=== PATIENT | female | born 1975 | race Caucasian/White ===

== ENCOUNTER 2020-12-07 19:30 | Emergency (ER) | payer MEDICAID, OTHER ==
[~2020-12-07] VITALS: Ht 165.1 cm; Wt 91.0 kg
[2020-12-07] MEDS ORDERED: KETOROLAC 30MG/ML VIAL IV STA (20:47)
[2020-12-07] MEDS ORDERED: ACETAMINOPHEN WITH CODEINE 300/30MG TABLET PO STA (20:47)
[2020-12-07] MEDS ORDERED: SODIUM CHLORIDE 0.9% 1,000 ML IV ONE (21:00)
[2020-12-07] MEDS ORDERED: ONDANSETRON HCL 4MG/2ML INJ IV ONE (21:00)
[2020-12-07 21:02] LABS: BASOPHILS % 0.4 % (0.0-2.0); HEMATOCRIT. 33.1 % (36.0-48.0); HEMOGLOBIN. 11.2 g/dL (12.0-16.0); LYMPHOCYTES % 16.4 % (20.0-50.0); MEAN PLATELET VOLUME 9.6 fl (7.4-10.4); MONOCYTES % 4.5 % (2.0-8.0); NEUTROPHILS % 78.7 % (40.0-76.0); PLATELET 276 x1000/uL (130-400); RED BLOOD CELL COUNT 4.14 mill/uL (4.2-5.4); RED CELL DISTRIBUTION WIDTH 14.2 % (11.6-14.6)
[2020-12-07 21:09] LABS: CHLORIDE 105 mEq/L (98-107)
[2020-12-07] MEDS ORDERED: POTASSIUM-SODIUM PHOSPHATE POWDER PACKET PO NR (22:15)
[2020-12-07] MEDS ORDERED: POTASSIUM CHLORIDE INJ 40 MEQ in DEXT 5% WATER 250 ML IV NR (22:15)
[2020-12-08] MEDS ORDERED: ACETAMINOPHEN 325MG TABLET PO ONE (00:45)
[2020-12-08 01:05] LABS: CHLORIDE 109 mEq/L (98-107)
[2020-12-08 02:11] LABS: CLARITY URINE CLOUDY (CLEAR); COLOR URINE DARK YELLOW (YELLOW); KETONES URINE 4+ (NEGATIVE); LEUKOCYTE ESTERASE URINE NEGATIVE (NEGATIVE); NITRITE URINE POSITIVE (NEGATIVE); OCCULT BLOOD URINE 1+ (NEGATIVE); PROTEIN URINE 1+ (NEGATIVE); SPECIFIC GRAVITY URINE 1.023 (1.005-1.030)
[2020-12-08 02:17] LABS: CHLORIDE 109 mEq/L (98-107)
[2020-12-08] MEDS ORDERED: ONDA4TAB5 MT (02:42)
[2020-12-08] MEDS ORDERED: CALCIUM 1250MG TABLET (500MG ELEMENTAL CALCIUM) PO ONE (02:45)
[2020-12-08 03:30] VITALS: BP 108/60
== END 2020-12-08 03:55 | disposition home or self-care (01) ==
LOC: ER 19:30
DX: U07.1 COVID-19 (principal); R11.2 Nausea with vomiting, unspecified; E87.6 Hypokalemia; E83.51 Hypocalcemia; Z98.84 Bariatric surgery status
CPT/HCPCS: 36415; 80048; 80053; 81003; 81025; 83690; 85025; 93005; 96361; 96365; 96366; 96375; 99285; J1885; J2405; J3480; J7030; J7060

== ENCOUNTER 2020-12-12 13:55 | Emergency (ER) | payer MEDICAID, OTHER ==
[~2020-12-12] VITALS: Ht 162.6 cm; Wt 85.0 kg
[~2020-12-12 13:55] MED LIST: ONDA4TAB5 MT
[2020-12-12] MEDS ORDERED: ACETAMINOPHEN 325MG TABLET PO STA (15:11)
[2020-12-12] MEDS ORDERED: IBUPROFEN 600MG TABLET PO STA (15:11)
[2020-12-12] MEDS ORDERED: SODIUM CHLORIDE 0.9% 1,000 ML IV ONE (15:15)
[2020-12-12 15:57] LABS: HEMATOCRIT. 31.1 % (36.0-48.0); HEMOGLOBIN. 10.2 g/dL (12.0-16.0); MEAN CORPUSCULAR HEMOGLOBIN 26.2 pg (28.0-32.0); MEAN CORPUSCULAR VOLUME 80.3 fL (81.0-99.0); MEAN PLATELET VOLUME 9.8 fl (7.4-10.4); PLATELET 198 x1000/uL (130-400); RED BLOOD CELL COUNT 3.87 mill/uL (4.2-5.4); RED CELL DISTRIBUTION WIDTH 14.3 % (11.6-14.6)
[2020-12-12 16:03] LABS: CHLORIDE 105 mEq/L (98-107)
[2020-12-12 16:35] LABS: PLATELET ESTIMATE NORMAL
[2020-12-12] MEDS ORDERED: POTASSIUM CHLORIDE 20MEQ TABLET SR PO NR (16:45)
[2020-12-12] MEDS ORDERED: POTASSIUM CHLORIDE INJ 40 MEQ in DEXT 5% WATER 250 ML IV NR (17:30)
[2020-12-12] MEDS ORDERED: POTA-79 MT (18:41)
[2020-12-12] MEDS ORDERED: ONDA4TAB5 MT (18:41)
[2020-12-13 00:33] VITALS: BP 104/67
== END 2020-12-13 00:34 | disposition home or self-care (01) ==
LOC: ER 13:55
DX: U07.1 COVID-19 (principal); E87.6 Hypokalemia; Z98.84 Bariatric surgery status
CPT/HCPCS: 36415; 71045; 80053; 85025; 93005; 96365; 99285; J3480; J7030; J7060

== ENCOUNTER 2020-12-19 01:52 | Emergency (ER) | payer MEDICAID ==
[~2020-12-19] VITALS: Ht 162.6 cm; Wt 84.0 kg
[~2020-12-19 01:52] MED LIST changes: +POTA-79 MT
[2020-12-19] MEDS ORDERED: KETOROLAC 30MG/ML VIAL IV STA (02:35)
[2020-12-19] MEDS ORDERED: SODIUM CHLORIDE 0.9% 1,000 ML IV ONE (02:45)
[2020-12-19 02:57] LABS: BASOPHILS % 0.3 % (0.0-2.0); EOSINOPHILS % 0.9 % (0.0-5.0); HEMATOCRIT. 33.3 % (36.0-48.0); HEMOGLOBIN. 10.8 g/dL (12.0-16.0); LYMPHOCYTES % 22.4 % (20.0-50.0); MEAN CORPUSCULAR HEMOGLOBIN 25.8 pg (28.0-32.0); MEAN CORPUSCULAR VOLUME 79.4 fL (81.0-99.0); MONOCYTES % 8.2 % (2.0-8.0); NEUTROPHILS % 68.2 % (40.0-76.0); PLATELET 479 x1000/uL (130-400); RED BLOOD CELL COUNT 4.19 mill/uL (4.2-5.4); RED CELL DISTRIBUTION WIDTH 14.4 % (11.6-14.6)
[2020-12-19 03:07] LABS: CHLORIDE 103 mEq/L (98-107)
[2020-12-19] MEDS ORDERED: POTASSIUM CHLORIDE 20MEQ TABLET SR PO ONE (04:15)
[2020-12-19] MEDS ORDERED: ONDA4TAB5 MT (05:27)
[2020-12-19] MEDS ORDERED: ACETAMINOPHEN WITH CODEINE 300/30MG TABLET PO ONE (06:15)
[2020-12-19 06:30] VITALS: BP 124/70
[2020-12-19] MEDS ORDERED: IOHEXOL-350 100 ML BOTTLE ONE (06:53)
== END 2020-12-19 06:55 | disposition home or self-care (01) ==
LOC: ER 02:01
DX: U07.1 COVID-19 (principal)
CPT/HCPCS: 36415; 71045; 71275; 80053; 83605; 83690; 85025; 85379; 96361; 96374; 99285; J1885; J7030; Q9967